=== PATIENT | male | born 1990 | race Caucasian/White ===

== ENCOUNTER 2018-05-13 20:02 | Emergency (ER) | payer OTHER ==
[2018-05-13 20:21] VITALS: BP 153/89
[2018-05-13 20:49] LABS: EOSINOPHILS % 3.4 % (0.0-6.8); MEAN CORPUSCULAR HEMOGLOBIN 31.8 pg (28.0-34.0); MONOCYTES % 5.7 % (0.0-11.0)
[2018-05-13 20:50] LABS: BASOPHILS % 0.3 (0.0-1.5)
--- NOTE | 2018-05-13 21:12 | ED Physician Documentation ---
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 pt c/o left sided chest pain x 2 weeks off/on. pt reports the pain is 10/10 non radiating and worse with palpation. pt reports the pain started again earlier today while watching a movie. pt denies n/v or diaphoresis, or syncope/near syncope. aquatics group fitness instructor reports pt has been at the home for one month and is wanting to move back home with grandmother. pt is a 1 ppd smoker. pt denies current dyspnea, syncope/near syncope, headache, dizziness, visual disturbances, n/v/d, fever, rash, dysuria, trauma. melena or hematochezia, change in bowel or bladder function. ROS Negative unless otherwise specified. Pt has a hx of Moderate MR, this history is limited. Last known Well Date: 05/13/18 Last Known Well Time: 14:00 Chest Pain Radiation: no radiation Worsened By: deep breaths Relieved By: nothing - ROS CONST: none MS/LYMPH: none GI/: none EYES/ENT: none SKIN/ENDO: none NEURO/PSYCH: none - PAST HX IA risk factors: hypertension, hyperlipidemia GI disease: GERD Surgeries/Procedures: none ([facility]) Allergies/Adverse Reactions: Allergies Allergy/AdvReac Type Severity Reaction Status Date / Time morphine Allergy Verified 05/13/18 20:21 Home Medications: Ambulatory Orders Medication Instructions Recorded Acetaminophen [Non-Aspirin] 2 tab PO Q4 PRN 05/13/18 Albuterol Sulfate [Proair 2 puff INH PRN PRN 05/13/18 Respiclick] Clonazepam [Klonopin] 1 tab PO BID 05/13/18 FLUoxetine HCL [Prozac] 2 tab PO DAILY 05/13/18 Labetalol HCl 1 tab PO DAILY 05/13/18 Lamotrigine [Lamictal] 2 tab PO DAILY 05/13/18 Levothyroxine Sodium [Unithroid] 1 tab PO DAILY 05/13/18 Losartan Potassium [Cozaar] 2 tab PO DAILY 05/13/18 Metformin HCl [Glucophage] 1 tab PO DAILY 05/13/18 Montelukast Sodium [Singulair] 1 tab PO DAILY 05/13/18 Paliperidone [Paliperidone ER] 1 tab PO DAILY 05/13/18 Ranitidine HCl [Acid Lead Radiologic Technologist] 1 tab PO BID 05/13/18 Trazodone HCl [Desyrel] 2 tab PO PRN PRN 05/13/18 - SOCIAL HX Smoking History: greater than 1 pack/day - FAMILY HX Family HX: other (unknown) - VITAL SIGNS Vital Signs: Vital Signs Temp Pulse Resp BP Pulse Ox 97.2 F L 109 H 17 153/89 93 05/13/18 20:02 05/13/18 20:39 05/13/18 20:02 05/13/18 20:02 05/13/18 20:37 - REVIEWED ASSESSMENTS Nursing Assessment Reviewed: Yes Vitals Reviewed: Yes ED Results Lab/Radiology - Lab Results Lab Results: Lab Results 05/13/18 20:10 WBC 9.10 K/ul K/ul (4.00-12.00) RBC 3.99 M/ul M/ul (3.90-5.20) Hgb 12.7 g/dL g/dL (12.0-18.0) Hct 37.1 % % (37.0-53.0) MCV 93.0 fl fl (80.0-100.0) MCH 31.8 pg pg (28.0-34.0) MCHC 34.2 g/dL g/dL (30.0-36.0) RDW 12.1 % % (11.3-14.3) Plt Count 229 K/mm3 K/mm3 (130-400) Neut % (Auto) 54.4 % % (39.0-79.0) Lymph % (Auto) 36.2 % % (16.0-50.0) [place] % (Auto) 5.7 % % (0.0-11.0) Eos % (Auto) 3.4 % % (0.0-6.8) Baso % (Auto) 0.3 (0.0-1.5) Neut # (Auto) 5.0 # k/uL # k/uL (1.4-7.7) Lymph # (Auto) 3.3 # k/uL # k/uL (0.6-4.0) [place] # (Auto) 0.5 # k/uL # k/uL (0.0-0.9) Eos # (Auto) 0.3 # k/uL # k/uL (0.0-0.6) Baso # (Auto) 0.0 # k/uL # k/uL (0.0-0.5) - Radiology Radiology Impressions: Chest two views History: Chest pain Findings: Calcified left thoracic granulomas are present. The lungs are otherwise clear. There is no pleural effusion or pneumothorax. Osseous structures are unremarkable. Heart size and pulmonary vascularity are normal. Impression: Old granulomatous disease. No acute abnormality. Electronically signed on May 13, 2018 9:33:29 PM CDT by: Leo Anderson Left ribs History: Chest pain for 2 weeks Findings: The left ribs are unremarkable without displaced fracture or focal rib lesion. Calcified left thoracic granulomas are noted. Electronically signed on May 13, 2018 9:32:49 PM CDT by: Leo Anderson EKG: Rate 100. normal intervals, axis, QRS. sinus tachycardia. no st elevation/depression. no ectopy. interp by me. - Orders Orders: ED Orders Category Date Time Status Continuous EKG monitoring Q30M Care 05/13/18 20:39 Active Continuous Pulse Oximetry Q30M Care 05/13/18 20:[address] IV Lock 1T Care 05/13/18 20:37 Active CHEST 2VIEW [RAD] Stat Exams 05/13/18 Ordered RIBS UNILAT 2 VIEWS [RAD] Stat Exams 05/13/18 Ordered CBC/PLATELET/DIFF Routine Lab 05/13/18 20:10 Completed CMP Routine Lab 05/13/18 20:10 Received TROPONIN I (cTnI) Stat Lab 05/13/18 20:10 Received EKG WITH COMPARISON Stat Ther 05/13/18 20:37 Ordered Chest Pain Physical Exam - EXAM General Appearance: no acute distress (stated complaints incongruent with exam findings), alert, anxious, other (MSK: chest wall tenderness left anterior/posterior) EENT: eye inspection normal, ENT inspection normal, pharynx normal, no signs of dehydration Neck: nml inspection Respiratory: no resp. distress CVS: reg. rate & rhythm Abdomen: soft, no organomegaly, normal bowel sounds, no distension, non-tender Skin: warm/dry, normal color Extremities: non-tender Neuro: oriented X3, motor nml, sensation nml, speech/cognition abnml (delayed speech and limited cognition at baseline due to MR. ) Discharge Clincal Impression: Costochondritis Additional Instructions: Monitor and seek medical care immediately for any worsening symptoms: severe pain, chest pain, shortness of breath, or any concern. follow up with your primary care provider next week. Return if worse. Rest Stop smoking or you will get cancer or have breathing problems. coming to the hospital will not help you to move out of senior living. take ibuprofen 600 mg every 6 hours for your rib muscle pain. Condition: Good Disposition: 01 HOME, SELF-CARE Decision to Admit: NO Date of Decison to Admit: 05/13/18 Decision Time: 21:40
[2018-05-13 21:16] LABS: eGFR (Non-African) > 60
--- NOTE | 2018-05-14 03:36 | Diagnostic Imaging Report ---
COLEEN ARGUELLO [facility] [address] [facility] [id number] Report Submission Date: May 13, 2018 9:33:29 PM CDT Patient Study Name: BARBRA HERNANDEZ Date: May 13, 2018 8:49:15 PM CDT Modality Type: DX Gender: M Description: CHEST : 86 Institution: [facility] Physician: COLEEN ARGUELLO Chest two views History: Chest pain Findings: Calcified left thoracic granulomas are present. The lungs are otherwise clear. There is no pleural effusion or pneumothorax. Osseous structures are unremarkable. Heart size and pulmonary vascularity are normal. Impression: Old granulomatous disease. No acute abnormality. Electronically signed on May 13, 2018 9:33:29 PM CDT by: Leo ELLIS
--- NOTE | 2018-05-14 03:36 | Diagnostic Imaging Report ---
COLEEN ARGUELLO [facility] [address] [facility].[address] [id number] Report Submission Date: May 13, 2018 9:32:49 PM CDT Patient Study Name: BARBRA HERNANDEZ Date: May 13, 2018 8:53:09 PM CDT Modality Type: DX Gender: M Description: LT. RIBS : 86 Institution: [facility] Physician: COLEEN ARGUELLO Left ribs History: Chest pain for 2 weeks Findings: The left ribs are unremarkable without displaced fracture or focal rib lesion. Calcified left thoracic granulomas are noted. Electronically signed on May 13, 2018 9:32:49 PM CDT by: Leo ELLIS
== END 2018-05-13 21:47 | disposition home or self-care (01) ==
LOC: ED 20:02
DX: M94.0 Chondrocostal junction syndrome [Tietze] (principal); I10 Essential (primary) hypertension; E78.5 Hyperlipidemia, unspecified
CPT/HCPCS: 71046; 71100; 80053; 84484; 85025; 99284; S1016